=== PATIENT | female | born 1990 | race Caucasian/White ===

== ENCOUNTER 2020-02-16 14:15 | Emergency (ER) | payer OTHER ==
[~2020-02-16] VITALS: Ht 157.5 cm; Wt 54.4 kg
[2020-02-16 15:39] VITALS: BP 135/87
== END 2020-02-16 16:09 | disposition home or self-care (01) ==
LOC: ER 14:15
DX: S90.32XA Contusion of left foot, initial encounter (principal); X58.XXXA Exposure to other specified factors, initial encounter; Y93.89 Activity, other specified; Y92.89 Other specified places as the place of occurrence of the external cause; Y99.8 Other external cause status
CPT/HCPCS: 73630